=== PATIENT | female | born 1970 | race Caucasian/White ===

== ENCOUNTER → 2020-06-05 | Outpatient (CLI) | payer BC ==
[~2020-06-05] MED LIST: DIFLUCAN 100 M100 MG PO; EFFEXOR XR 75 M75 MG PO; EFFEXOR XR75 MG PO; HUMALOG100 UNIT/3 SQ; K-DUR TAB 20 M20 MEQ PO; LANTUS100 UNIT/1 SQ; LIPITOR TAB 2020 MG PO; NEURONTIN 100100 MG PO; SINGULAIR10 MG PO; SYNTHROID100 MCG PO; SYNTHROID25 MCG PO
== END ==
LOC: MAMO 04-17 09:30 → US 04-17 10:00 → MAMO 05-22 14:00
DX: Z12.31 Encounter for screening mammogram for malignant neoplasm of breast (principal)
CPT/HCPCS: 76641-LT; 77063; 77067

== ENCOUNTER → 2021-11-16 | Outpatient (CLI) | payer BC | LOC: KOH-I 15:30 | DX: J32.9 Chronic sinusitis, unspecified (principal); R43.8 Other disturbances of smell and taste | CPT/HCPCS: 70486 ==